=== PATIENT | male | born 1975 | race Caucasian/White ===

== ENCOUNTER 2023-04-09 08:10 | Day surgery (SDC) | payer BC ==
[~2023-04-09 08:10] MED LIST: Sodium Chloride 0.9% 10 ML Syringe FLUSH PRN
[2023-04-09] MEDS ORDERED: Propofol 200 MG/20 ML SDV IV ONE (08:11)
[2023-04-09] MEDS: Lactated Ringers 1,000 ML IV SCH (09:01)
[2023-04-09] MEDS: Simethicone Drops 40 MG/0.6 ML 30 ML Bottle ONE (09:21)
== END 2023-04-09 10:25 | disposition home or self-care (01) ==
LOC: FB.SDS 08:10
PROVIDERS: ATTEND Surgery
DX: Z12.11 Encounter for screening for malignant neoplasm of colon (principal); D12.6 Benign neoplasm of colon, unspecified; Z79.899 Other long term (current) drug therapy
CPT/HCPCS: 00812; 45385; 88305; 88341; 88342; A9270; J2704; J7120